=== PATIENT | female | born 2000 | race Caucasian/White ===

== ENCOUNTER 2019-01-03 23:34 | Emergency (ER) | payer OTHER ==
--- NOTE | 2019-01-04 00:35 | EDPHY ---
H & P Time Seen by Provider: 01/04/19 00:23 HPI/ROS: CHIEF COMPLAINT: Possible infection right anterior neck HISTORY OF PRESENT ILLNESS: 18-year-old immunocompetent female, no history of IV drug abuse, noticed a pimple like lesion on her right anterior neck overlying her sternocleidomastoid few days ago. She has been applying Neosporin to the area. Her father who is a physician called in a prescription for Augmentin which she has been on for 24 hr. She notes no improvement in symptoms. She notes no limitations in range of motion of her head/neck. No history of trauma to the area. No extension to the posterior cervical region. She notes 1 tender cervical lymph node. No prior history of similar. No history of chronic/recurrent skin infections. No known history of cutaneous MRSA. Tetanus up-to-date PHYSICAL EXAM (Prior to examination, patient consented to physical exam, hands were washed and my usual and customary physical exam procedures followed) 1) GENERAL: Well-developed, well-nourished, alert and oriented. Appears to be in no acute distress. 2) HEAD: Normocephalic 3) HEENT: sclera anicteric 4) LUNGS: Breathing comfortably. 5) SKIN: Right anterior neck overlying the the more caudal aspect of the sternocleidomastoid patient has an area of erythema, induration, tenderness measuring 3 cm x 1.5 cm. There is no fluctuance. No crepitus. She has full pain-free range of motion of the head/neck. There is no mass. There is no drainage. She has a single tender submandibular node. Smoking Status: Never smoked Constitutional: Initial Vital Signs Temperature (C) 37.3 C 01/03/19 23:37 Heart Rate 87 01/03/19 23:37 Respiratory Rate 16 01/03/19 23:37 Blood Pressure 167/122 H 01/03/19 23:37 O2 Sat (%) 97 01/03/19 23:37 O2 Delivery Mode Room Air Allergies/Adverse Reactions: No Known Allergies Allergy (Unverified 01/03/19 23:36) Home Medications: Medication Instructions Recorded Control Pill 01/03/19 Cephalexin [Keflex] 500 mg PO TID 7 Days cap 01/04/19 ED Images - Head Head Front/Back: 1 - Erythema MDM/Departure - MDM ED Course/Re-evaluation: Patient I had a lengthy discussion. At this time the patient's lesion is not consistent with zoster. Although patient has been informed that this may evolve and if she were to develop dermatomal distribution lesions she needs to return to the ER. Doubt deep space infection, doubt necrotizing fasciitis, doubt abscess. At this time I do not think that CT imaging is indicated given my low pretest suspicion for deep space infection or muscular involvement especially as she has excellent and full range of motion of her neck. Will change the patient's antibiotic to Keflex. Recommend warm packs on the area. Definitely if she develops new or worsening symptoms she needs to return to the ER immediately for re-evaluation. Care of patient under supervision of secondary supervising physician Dr Hameed . - Depart Disposition: Home, Routine, Self-Care Clinical Impression: Cellulitis of neck Condition: Good Instructions: Cellulitis (ED) Additional Instructions: Apply warm compresses to the area. Do not pick at the area. Prescriptions: Cephalexin [Keflex] 500 mg PO TID 7 Days cap Referrals: YAHAIRA BRADY DR [Other] - 1-2 days without fail
[2019-01-04 00:58] VITALS: BP 143/89
== END 2019-01-04 00:58 | disposition home or self-care (01) ==
DX: L03.221 Cellulitis of neck (principal)